=== PATIENT | female | born 1995 | race Caucasian/White ===

== ENCOUNTER 2018-12-02 10:58 | Emergency (ER) | payer SELFPAY ==
[~2018-12-02] VITALS: Ht 170.2 cm; Wt 86.2 kg
[2018-12-02 10:58] VITALS: BP 132/82
[2018-12-02] MEDS ORDERED: cefTRIAXone IM 250 MG VIAL IM ONE (11:45)
[2018-12-02] MEDS ORDERED: AZITHROMYCIN 250 MG TABLET. PO ONE (11:45)
--- NOTE | 2018-12-02 11:51 | PHYS DOC ---
Adult General Chief Complaint Chief Complaint: PELVIC PAIN HPI HPI Patient is a 23 year old female who presents to the ER with complaint of R pelvic pain. Pt states she had an IUD after having her child and was told during her follow up appointment in September that the strings were not found. Pt was supposed to have an ultrasound done to look for IUD placement but never went because her pelvic pain went away. Pt also reports abnormal vaginal discharge for several weeks. She currently rates her pain a 4/10 on the pain scale, the pain increases to a 7/10 with ambulation and standing, rest helps reduce the pain. Review of Systems Review of Systems Constitutional: Denies fever or chills [] Eyes: Denies change in visual acuity, redness, or eye pain [] HENT: Denies nasal congestion or sore throat [] Respiratory: Denies cough or shortness of breath [] Cardiovascular: No additional information not addressed in HPI [] GI: Denies nausea, vomiting, bloody stools or diarrhea; reports R pelvic pain : Denies dysuria or hematuria; reports abnormal vaginal discharge, denies vaginal bleeding[] Musculoskeletal: Denies back pain or joint pain [] Integument: Denies rash or skin lesions [] Neurologic: Denies headache, focal weakness or sensory changes [] Complete systems were reviewed and found to be within normal limits, except as documented in this note. Current Medications Current Medications Current Medications Medications (Trade) Dose Ordered Sig/Brian Start Time Stop Time Status Last Admin Dose Admin Azithromycin (Zithromax) 1,000 mg 1X ONCE 12/02/18 11:45 12/02/18 11:46 DC 12/02/18 12:57 1,000 MG Ceftriaxone Sodium (Rocephin Im) 250 mg 1X ONCE 12/02/18 11:45 12/02/18 11:46 DC 12/02/18 12:57 250 MG Allergies Allergies Allergies Coded Allergies Type Severity Reaction Last Updated Verified No Known Drug Allergies 12/02/18 No Physical Exam Physical Exam Constitutional: Well developed, well nourished, no acute distress, non-toxic appearance. [] HENT: Normocephalic, atraumatic, bilateral external ears normal, nose normal. [] Eyes: PERRLA, EOMI, conjunctiva normal, no discharge. [] Neck: Normal range of motion, supple, no stridor. [] Cardiovascular:Heart rate regular rhythm Lungs & Thorax: Respirations even and unlabored, no retractions, no respiratory distress Pelvic Exam: Message Clerk present Aleida MAN Abdomen: Nontender, soft External Genitalia: Normal Skin Speculum: Normal vaginal mucosa; yellow-green cervical discharge, friable cervix, no IUD strings present Bimanual: No adnexal masses or tenderness, No CMT Skin: Warm, dry, no erythema, no rash. [] Back: No tenderness Extremities: No cyanosis, ROM intact, no edema. [] Neurologic: Alert and oriented X 3, no focal deficits noted. [] Psychologic: Affect normal, judgement normal, mood normal. [] Current Patient Data Vital Signs Vital Signs Date Time Temp Pulse Resp B/P (MAP) Pulse Ox O2 Delivery O2 Flow Rate FiO2 12/02/18 10:58 98.6 78 18 132/82 (99) 94 Room Air 98.6 Lab Values Laboratory Tests Test 12/02/18 11:05 12/02/18 11:18 Urine Collection Type Unknown Urine Color Yellow Urine Clarity Clear Urine pH 6.5 Urine Specific [place] 1.025 Urine Protein Negative mg/dL (NEG-TRACE) Urine Glucose (UA) Negative mg/dL (NEG) Urine Ketones (Stick) Negative mg/dL (NEG) Urine Blood Negative (NEG) Urine Nitrite Negative (NEG) Urine Bilirubin Negative (NEG) Urine Urobilinogen Dipstick 1.0 mg/dL (0.2 mg/dL) Urine Leukocyte Esterase Negative (NEG) Urine RBC Occ /HPF (0-2) Urine WBC 5-10 /HPF (0-4) Urine Squamous Epithelial Cells Mod /LPF Urine Bacteria Few /HPF (0-FEW) Urine Mucus Slight /LPF POC Urine HCG, Qualitative Hcg negative (Negative) Microbiology 12/02/18 Wet Prep - Final, Complete EKG EKG [] Radiology/Procedures Radiology/Procedures PROCEDURE: PELVIS W/TV Indication: No IUD strings on pelvic exam. Right Pelvic pain. TECHNIQUE: Grayscale, color Doppler and spectral waveform images of the pelvis obtained COMPARISON: None FINDINGS: Anteverted uterus measuring 8.8 x 5.4 x 4.3 cm. Endometrial stripe measures 2 mm in thickness and is within normal limits. IUD is noted. Trace amount of free pelvic fluid. Left ovary measures 3.4 x 3.0 x 3.0 cm with a dominant follicle or cyst measuring 2.5 x 1.5 x 1.5 cm and shows evidence of blood flow. Right ovary measures 3.6 x 2.3 x 2.1 cm and shows evidence of blood flow. IMPRESSION: 1. Intrauterine IUD in the lower uterine segment. 2. Small cyst or dominant follicle in the left ovary. 3. Both ovaries show evidence of blood flow.[] Course & Med Decision Making Course & Med Decision Making Pertinent Labs and Imaging studies reviewed. (See chart for details) dx:BV, IUD migration, suspected STI, left ovarian cyst 1420- Spoke with Dr. Marin about abnormal IUD placement findings, will have patient follow up with OBGyn that inserted device for removal. Patient was treated prophylactically with 250 mg of IM Rocephin, and 1 g of PO Zithromax. Patient was instructed to avoid having intercourse until the results of gonorrhea and chlamydia testing are available, patient was notified that these results would not be available for 48 hours. If one or both of these tests is positive, patient needs to refrain from intercourse for approximately 1 week following the treatment of any current partners. Dragon Disclaimer Dragon Disclaimer This electronic medical record was generated, in whole or in part, using a voice recognition dictation system. Departure Departure Impression: Primary Impression: BV (bacterial vaginosis) Additional Impressions: Intrauterine device (IUD) migration Contact with and (suspected) exposure to infections with a predominantly sexual mode of transmission Ovarian cyst Disposition: HOME, SELF-CARE Condition: STABLE Referrals: NO PCP (PCP) Patient Instructions: Bacterial Vaginosis, [id number], Ovarian Cyst, [id number], Sexually Transmitted Disease, [id number] Additional Instructions: Fill the prescription and use as directed. Recommend that you go to your local health department for comprehensive sexually transmitted disease testing. You have been treated for a suspected gonorrhea and chlamydia. Avoid having intercourse until the results of gonorrhea and chlamydia testing are available, these results will not be available for 48 hours. If one or both of these tests is positive, you need to refrain from intercourse for approximately 1 week following the treatment of any current partners. Follow-up with your primary care doctor if symptoms persist, return to ER symptoms worsen. Follow up with your OBGyn next week about your IUD. Scripts Metronidazole (FLAGYL) 500 Mg Tablet 1 TAB PO BID for 7 Days, #14 TAB 0 Refills Prov: CAROLA ZULETA [employer] 12/02/18 Problem Qualifiers Additional Impressions: Intrauterine device (IUD) migration Encounter type: initial encounter Qualified Codes: T83.89XA - Other specified complication of genitourinary prosthetic devices, implants and grafts, initial encounter Ovarian cyst Laterality: left Qualified Codes: N83.202 - Unspecified ovarian cyst, left side CAROLA ZULETA [employer] Dec 02, 2018 11:51
[2018-12-02 12:09] LABS: BILIRUBIN,URINE NEGATIVE (NEG); CLARITY,URINE CLEAR; COLOR,URINE YELLOW; NITRITE,URINE NEGATIVE (NEG); PH,URINE 6.5; PROTEIN,URINE NEGATIVE (NEG-TRACE)
[2018-12-02 12:24] LABS: BACTERIA,URINE FEW /HPF (0-FEW); RBC,URINE OCC /HPF (0-2); SQUAMOUS EPITHELIAL CELL,UR MOD /LPF
--- NOTE | 2018-12-02 13:58 | RAD ---
Indication: No IUD strings on pelvic exam. Right Pelvic pain. TECHNIQUE: Grayscale, color Doppler and spectral waveform images of the pelvis obtained COMPARISON: None FINDINGS: Anteverted uterus measuring 8.8 x 5.4 x 4.3 cm. Endometrial stripe measures 2 mm in thickness and is within normal limits. IUD is noted. Trace amount of free pelvic fluid. Left ovary measures 3.4 x 3.0 x 3.0 cm with a dominant follicle or cyst measuring 2.5 x 1.5 x 1.5 cm and shows evidence of blood flow. Right ovary measures 3.6 x 2.3 x 2.1 cm and shows evidence of blood flow. IMPRESSION: 1. Intrauterine IUD in the lower uterine segment. 2. Small cyst or dominant follicle in the left ovary. 3. Both ovaries show evidence of blood flow. Electronically signed by: Dae Heath DO (12/02/2018 1:55 PM) [facility]
[2018-12-02] MEDS ORDERED: METR500T PO (14:07)
== END 2018-12-02 14:30 | disposition home or self-care (01) ==
LOC: ER 10:58
DX: T83.89XA Other specified complication of genitourinary prosthetic devices, implants and grafts, initial encounter (principal); N76.0 Acute vaginitis; B96.89 Other specified bacterial agents as the cause of diseases classified elsewhere; N83.202 Unspecified ovarian cyst, left side; Z20.2 Contact with and (suspected) exposure to infections with a predominantly sexual mode of transmission; Y92.89 Other specified places as the place of occurrence of the external cause
CPT/HCPCS: 76830; 76856; 81001; 81025; 87086; 96372; 99285; J0696; Q0111; Q0144; 87491; 87591